=== PATIENT | male | born 1990 | race Caucasian/White ===

== ENCOUNTER 2016-07-24 23:05 | Emergency (ER) | payer BC, OTHER ==
[2016-07-24 23:18] VITALS: BP 137/88
[2016-07-24] MEDS ORDERED: Ketorolac 60 MG/2 ML SDV IM ONE (23:30)
--- NOTE | 2016-07-24 23:35 | EDM.PDOC ---
ED HPI LOWER BACK PAIN/INJURY - General Chief Complaint: Back Pain or Injury Stated Complaint: TWISTED BACK Time Seen by Provider: 07/24/16 23:05 Source: Reports: Patient History Limitations: Reports: No limitations - History of Present Illness INITIAL COMMENTS - FREE TEXT/NARRATIVE: 25 years old w bg came to the ed 2 days after he fell onto his right lower back. Pt took motrin, which did not help. Pt has to go to work at 11 pm to days and decided not to go because of his back pain. Pt denies any other acute medical issues. Symptom Onset Date: 07/22/16 Symptom Onset Time: 09:00 Timing/Duration: Reports: Day(s): Location: Reports: lower, paraspinal (right) Quality: Reports: Burning, Dull, Pressure Severity: mild Place: home Improves with: Reports: Medication Worsens with: Reports: Movement Context: Reports: fall Associated Symptoms: Reports: Denies symptoms Treatment(s) [employer]: Reports: NSAIDS - Related Data Allergies/ADRs: Allergies Allergy/AdvReac Type Severity Reaction Status Date / Time No Known Allergies Allergy Verified 07/24/16 23:26 Home Meds: Home Meds Ibuprofen 800 mg PO Q8HR PRN 07/24/16 [History] ED ROS GENERAL - Review of Systems Review Of Systems: See Below Constitutional: Reports: no symptoms HEENT: Reports: No symptoms Respiratory: Reports: No Symptoms Cardiovascular: Reports: No symptoms Endocrine: Reports: no symptoms GI/Abdominal: Reports: No symptoms : Reports: no symptoms Musculoskeletal: Reports: back pain (r lower back), muscle pain Skin: Reports: no symptoms Neurological: Reports: No Symptoms Psychiatric: Reports: No symptoms Hematologic/Lymphatic: Reports: no symptoms Immunologic: Reports: no symptoms ED EXAM,LOWER BACK PAIN/INJURY - Physical Exam Exam: See Below Exam Limited By: No limitations General Appearance: alert, WD/WN, mild distress, obese Eye Exam: bilateral eye: normal inspection Ears: normal external exam, normal canal Nose: normal inspection, normal mucosa, no blood Throat/Mouth: Normal inspection, Normal lips, Normal teeth, Normal gums, Normal oropharynx, Normal voice Head: atraumatic, normocephalic Neck: normal inspection, supple, non-tender, full range of motion Respiratory/Chest: no respiratory distress, lungs clear, normal breath sounds Cardiovascular: normal peripheral pulses, regular rate, rhythm, no edema, no gallop GI/Abdominal: normal bowel sounds, soft, non tender (Male) Exam: Deferred Rectal (Males) Exam: Deferred Back Exam: muscle spasm, paraspinal tenderness (r side) Extremities: normal inspection Neurological: alert, normal mood/affect, normal dorsiflexion, CN II-XII intact Psychiatric: normal affect, normal mood Skin Exam: Warm, Dry, Intact, Normal color, No rash Lymphatic: no adenopathy Course - Vital Signs Text/Narrative:: 25 years old w bg came to the ed 2 days after he fell onto his right lower back. Pt took motrin, which did not help. Pt has to go to work at 11 pm to days and decided not to go because of his back pain. Pt denies any other acute medical issues. PE: Mild r lower paravertebral tenderness Imaging: Not indicated Labs: UA Last Recorded V/S: Last Vital Signs Temp 35.6 C 07/24/16 23:05 Pulse 81 07/24/16 23:05 Resp 18 07/24/16 23:05 BP 137/88 07/24/16 23:05 Pulse Ox 96 07/24/16 23:05 - Orders/Labs/Meds Orders: Active Orders 24 hr Category Date Time Status UA W/MICROSCOPIC [URIN] Stat Lab 07/24/16 23:53 Ordered Ice Therapy [OM.PC] Routine Oth 07/24/16 23:30 Ordered Meds: Medications Discontinued Medications Generic Name Dose Route Start Last Admin Trade Name Tex PRN Reason Stop Dose Admin Ketorolac Tromethamine 60 mg 07/24/16 23:30 07/24/16 23:34 Toradol IM 07/24/16 23:31 60 mg ONETIME ONE Administration Departure - Departure Time of Disposition: 00:13 Disposition: Home, Self-Care 01 Condition: good Clinical Impression: Low back pain Qualifiers: Chronicity: acute Back pain laterality: right Sciatica presence: without sciatica Qualified Code(s): M54.5 - Low back pain Referrals: PCP,None [Primary Care Provider] - Forms: ED Department Discharge, Return to Work/School Form Additional Instructions: Please apply ice to lower back, take motrin for pain, please follow up with your doctor, please come back to the ed if your symptoms are getting acutely worse. - My Orders Last 24 Hours: My Active Orders 07/24/16 23:30 Ice Therapy [OM.PC] Routine 07/24/16 23:53 UA W/MICROSCOPIC [URIN] Stat - Assessment/Plan Last 24 Hours: My Active Orders 07/24/16 23:30 Ice Therapy [OM.PC] Routine 07/24/16 23:53 UA W/MICROSCOPIC [URIN] Stat
== END 2016-07-25 00:15 | disposition home or self-care (01) ==
LOC: FB.ED 23:05
DX: M54.5 Low back pain (principal)
CPT/HCPCS: 81001; 96372; 99283; J1885